=== PATIENT | male | born 1945 | race Caucasian/White ===

== ENCOUNTER 2020-03-04 17:30 | Observation (INO) ==
[2020-03-04] MEDS ORDERED: CIPRO IV 400 MG PREMIX* 400 MG/200 ML IV.SOLN. IV SCH (20:05)
[2020-03-04 20:38] LABS: BASOPHILS # (AUTO) 0.1 X10^3/uL (0.0-0.1); EOSINOPHILS % (AUTO) 0.3 % (0.9-2.9); HEMATOCRIT 38.8 % (42.0-54.0); HEMOGLOBIN 12.6 g/dL (13.5-18.0); LYMPHOCYTES # (AUTO) 0.6 X10^3/uL (1.3-2.9); LYMPHOCYTES % (AUTO) 4.6 % (21.0-51.0); MEAN CORPUSCULAR HGB CONC 32.5 g/dL (33.0-35.0); MEAN CORPUSCULAR VOLUME 89.4 fL (80.0-100.0); MEAN PLATELET VOLUME 9.1 fL (7.4-11.0); MONOCYTES # (AUTO) 0.9 x10^3/uL (0.3-0.8); MONOCYTES % (AUTO) 6.8 % (0.0-13.0); NEUTROPHILS # (AUTO) 11.5 x10^3/uL (2.2-4.8); NEUTROPHILS % (AUTO) 87.3 % (42.0-75.0); PLATELET COUNT 77 X10^3/uL (150.0-450.0); RED BLOOD COUNT 4.34 X10^6/uL (4.7-6.0); RED CELL DISTRIBUTION WIDTH 14.4 % (11.6-16.5); WHITE BLOOD COUNT 13.2 X10^3/uL (3.6-10.0)
[2020-03-04 20:48] LABS: ALBUMIN 2.8 g/dL (3.4-5.0); CALCIUM 8.5 mg/dL (8.5-10.1); CARBON DIOXIDE 25.5 mmol/L (21-32); COR CA(FOR HYPOALB) 9.5 mg/dL (8.5-10.1); CREATININE 1.71 mg/dL (0.70-1.30); TOTAL PROTEIN 6.5 g/dL (6.4-8.2)
[2020-03-04 21:05] LABS: METAMYELOCYTES % 3; PLATELET MORPHOLOGY COMMENT NORMAL (NORMAL)
[2020-03-04 23:18] VITALS: BMI 26.2
[2020-03-05] MEDS: NS 1000 ML 1,000 ML IV SCH ×4 (00:26→22:28)
[2020-03-05] MEDS ORDERED: TYLENOL 325 MG TAB PO ONE (00:36)
[2020-03-05] MEDS: TYLENOL 325 MG TAB PO PRN ×2 (00:41→17:55)
[2020-03-05 03:52] LABS: BILIRUBIN,URINE NEGATIVE (NEGATIVE); BLOOD/HEMOGLOBIN,URINE 2+ (NEGATIVE); GLUCOSE, URINE NEGATIVE (NEGATIVE); KETONES,URINE 1+ (NEGATIVE); LEUKOCYTE ESTERASE ,URINE 1+ (NEGATIVE); NITRITES,URINE NEGATIVE (NEGATIVE); PROTEIN,URINE 3+ (NEGATIVE); UROBILINOGEN,URINE NORMAL (NORMAL)
[2020-03-05 04:01] LABS: APPEARANCE,URINE HAZY (CLEAR); BACTERIA,URINE 3+ /HPF (NEGATIVE); COLOR,URINE AMBER (YELLOW); HYALINE CASTS, URINE MANY /LPF (NEGATIVE); SQUAMOUS EPITHELIAL CELL,UR NEGATIVE /HPF (NEGATIVE)
[2020-03-05 04:02] LABS: GRANULAR CASTS,URINE MANY /LPF (NEGATIVE); MUCUS,URINE FEW /HPF (NEGATIVE); OTHER CASTS, URINE MANY /LPF (NEGATIVE)
[2020-03-05 06:44] LABS: BASOPHILS % (AUTO) 0.1 % (0.2-1.0); EOSINOPHILS # (AUTO) 0.1 x10^3/uL (0.0-0.2); EOSINOPHILS % (AUTO) 0.8 % (0.9-2.9); HEMATOCRIT 33.2 % (42.0-54.0); HEMOGLOBIN 11.5 g/dL (13.5-18.0); LYMPHOCYTES # (AUTO) 0.7 X10^3/uL (1.3-2.9); LYMPHOCYTES % (AUTO) 7.1 % (21.0-51.0); MEAN CORPUSCULAR HEMOGLOBIN 30.5 pg (27.0-34.0); MEAN CORPUSCULAR HGB CONC 34.7 g/dL (33.0-35.0); MEAN PLATELET VOLUME 9.6 fL (7.4-11.0); MONOCYTES # (AUTO) 0.8 x10^3/uL (0.3-0.8); MONOCYTES % (AUTO) 7.8 % (0.0-13.0); NEUTROPHILS # (AUTO) 8.8 x10^3/uL (2.2-4.8); NEUTROPHILS % (AUTO) 84.2 % (42.0-75.0); PLATELET COUNT 68 X10^3/uL (150.0-450.0); RED BLOOD COUNT 3.78 X10^6/uL (4.7-6.0); RED CELL DISTRIBUTION WIDTH 14.4 % (11.6-16.5); WHITE BLOOD COUNT 10.5 X10^3/uL (3.6-10.0)
[2020-03-05 07:06] LABS: ALBUMIN 2.4 g/dL (3.4-5.0); CALCIUM 8.5 mg/dL (8.5-10.1); CARBON DIOXIDE 26.1 mmol/L (21-32); COR CA(FOR HYPOALB) 9.8 mg/dL (8.5-10.1); CREATININE 1.6 mg/dL (0.70-1.30); TOTAL PROTEIN 5.9 g/dL (6.4-8.2)
[2020-03-05] MEDS ORDERED: CIPRO IV 400 MG PREMIX* 400 MG/200 ML IV.SOLN. IV SCH (09:00)
[2020-03-05] MEDS: FORTAZ or TAZICEF VIAL INJ 1 G in NS 100 ML IV + SPIKE MINIBAG* 100 ML IV SCH ×3 (09:00→22:29)
[2020-03-05] MEDS: CIPRO IV 400 MG PREMIX* 400 MG/200 ML IV.SOLN. IV SCH ×2 (09:16→22:29)
--- NOTE | 2020-03-05 09:47 | RAD ---
[id number] male with history of Covid. Shortness of breath.STUDYCHEST, 1 VIEWCOMPARISONPrevious chest radiograph from 03/03/2020.FINDINGSHeart size and pulmonary vasculature within normal limits. However since the previous exam, patchy opacity is developed at both lung bases. This may be related to either atelectasis or developing infiltrates. No significant effusion is seen on either side. Bony thorax is unremarkable.IMPRESSIONInterval development of bibasilar atelectasis/infiltrates.Electronically signed by: WOODY WESLEY (Mar 05, 2020 09:46:11)
[2020-03-05] MEDS: HumuLIN R SC PRN (17:57)
[2020-03-06] MEDS: NS 1000 ML 1,000 ML IV SCH (00:22)
[2020-03-06 05:16] LABS: ABG ALLEN TEST POSS; ABG BASE EXCESS 2.3 mmol/L (-2.0-2.0)
[2020-03-06] MEDS: FORTAZ or TAZICEF VIAL INJ 1 G in NS 100 ML IV + SPIKE MINIBAG* 100 ML IV SCH (05:25)
--- NOTE | 2020-03-06 05:44 | RAD ---
PROCEDURE: Chest X-ray 1 View .HISTORY: Short of breath.TECHNIQUE: AP view .COMPARISON: 03/05/2020.TECHNICAL QUALITY: Satisfactory .FINDINGS:Normal size heart .Mediastinum and hilar regions show no masses or lymphadenopathy .Normal central vascularity .Some mild atelectasis lung bases without convincing evidence of pneumonia. No pleural fluid or pneumothorax.No acute bony abnormality .IMPRESSION:No convincing evidence of developing pneumonia with some mild discoid atelectasis.Electronically signed by: Bruce Goodwin (Mar 06, 2020 05:42:48)
[2020-03-06 06:56] LABS: BASOPHILS % (AUTO) 0.1 % (0.2-1.0); EOSINOPHILS % (AUTO) 0.1 % (0.9-2.9); HEMATOCRIT 32.7 % (42.0-54.0); HEMOGLOBIN 11.2 g/dL (13.5-18.0); LYMPHOCYTES # (AUTO) 0.8 X10^3/uL (1.3-2.9); LYMPHOCYTES % (AUTO) 7.3 % (21.0-51.0); MEAN CORPUSCULAR HEMOGLOBIN 30.1 pg (27.0-34.0); MEAN CORPUSCULAR HGB CONC 34.2 g/dL (33.0-35.0); MEAN PLATELET VOLUME 9.7 fL (7.4-11.0); MONOCYTES # (AUTO) 1.1 x10^3/uL (0.3-0.8); MONOCYTES % (AUTO) 10.1 % (0.0-13.0); NEUTROPHILS # (AUTO) 8.9 x10^3/uL (2.2-4.8); NEUTROPHILS % (AUTO) 82.4 % (42.0-75.0); PLATELET COUNT 75 X10^3/uL (150.0-450.0); RED BLOOD COUNT 3.72 X10^6/uL (4.7-6.0); RED CELL DISTRIBUTION WIDTH 14.5 % (11.6-16.5); WHITE BLOOD COUNT 10.8 X10^3/uL (3.6-10.0)
[2020-03-06 07:09] LABS: ALANINE AMINOTRANSFERASE 18 Units/L (12-78); ALBUMIN 2.1 g/dL (3.4-5.0); ALKALINE PHOSPHATASE 67 Units/L (46-116); ASPARTATE AMINO TRANSFERASE 24 Units/L (15-37); BLOOD UREA NITROGEN 19 mg/dL (7-18); CALCIUM 8.1 mg/dL (8.5-10.1); CARBON DIOXIDE 24.2 mmol/L (21-32); CHLORIDE 105 mmol/L (98-107); COR CA(FOR HYPOALB) 9.6 mg/dL (8.5-10.1); COR NA(FOR HYPERGLY) 142 mmol/L (136-145); CREATININE 1.19 mg/dL (0.70-1.30); SODIUM 141 mmol/L (136-145); TOTAL PROTEIN 5.8 g/dL (6.4-8.2); eGFR NON BLACK RACES > 60 (>60)
[2020-03-06] MEDS: CIPRO IV 400 MG PREMIX* 400 MG/200 ML IV.SOLN. IV SCH (11:00)
[2020-03-06 11:49] VITALS: BP 131/60
[2020-03-06] MEDS: HumuLIN R SC PRN (11:52)
--- NOTE | 2020-04-22 10:37 | DR.H&P ---
H&P - History & Physical for Day of: H&P Date: 03/04/20 - Chief Complaint Chief Complaint: AMS, FEVER, WEAKNESS, UTI, ABDOMINAL PAIN - History of Present Illness History of Present Illness: PRESENTED TO THE OFFICE WITH COMPLAINTS OF CONFUSION, FEVER, AND MID AND RIGHT LOWER ABDOMINAL PAIN. PATIENT WAS SEEN IN THE ER ONE DAY PRIOR AND WAS DIAGNOSED WITH A URINARY TRACT INFECTION. PATIENTS SPOUSE REPORTS THAT HE CONTINUES TO BE VERY CONFUSED AND WEAK. ON EXAMINATION, PATIENT WAS DISORIENTED AND CONFUSED TO TIME AND PLACE. HE REPORTED LOSS OF APPETITE, FATIGUE, AND MALAISE. HE TESTED POSITIVE FOR COVID-19 OVER A MONTH AGO, BUT HE DENIES COUGH OR SHORTNESS OF BREATH. HE WAS RESWABBED AT THE OFFICE FOR COVID-19 AND IT WAS NEGATIVE. EXAMINATION REVEALED TENDERNESS OT THE RIGHT LOWER QUADRANT TO PALPATION. HIS PMH INCLUDES: DVT, HTN, GI BLEED, CHRONIC UTIs, HYPERLIPIDEMIA, DIABETES MELLITUS, AND LEFT GREAT TOE REMOVED. HE WAS ADMITTED TO THE HOSPITAL FOR FURTHER EVALUATION AND TREATMENT OF UTI, FEVER, ABDOMINAL PAIN, AND AMS. ON ARRIVAL TO THE HOSPITAL, VITALS WERE 99.2-20-97%-99-103/53. LABS WERE OBTAINED. ABNORMAL LAB VALUES INCLUDE THE FOLLOWING: WBC 13.2, RBC 4.34, HGB 12.6, HCT 38.8, PLT COUNT 77, D-DIMER 3.70, POTASSIUM 3.4, BUN 29, CREATININE 1.71, GLUCOSE 186, AST 14, ALBUMIN 2.8. RAPID SWAB WAS POSITIVE FOR COVID-19. WE FEEL THAT THIS IS NOT AN ACTIVE INFECTION, PROBABLY JUST PICKING UP ON HIS ANTIBODIES. BLOOD AND URINE CULTURES WERE SET UP. HE WAS STARTED ON NORMAL SALINE AT 75 ML/HR, CIPRO 400MG IV Q12H, TYLENOL 650MG PO Q6H PRN, HUMULIN R SLIDING SCALE, AND OTBS ACHS. WE WILL REVIEW HIS HOME MEDICATIONS WHEN THEY ARE AVAILABLE TO US. OTHERWISE, WE PLAN TO FOLLOW UP WITH AM LABS AND CONTINUE TO MONITOR. TIME SPENT ON CLINCIAL ASSESSMENT, REVIEWING LABS AND IMAGING, DECISION MAKING, AND DOCUMENTATION GREATER THAN 75 MINUTES. - Past Medical History Past Medical History: Diabetes, Dyslipidemia, Hypertension Additional Medical History: DVT, GI BLEE, CHRONIC UTI - Past Surgical History Surgical History: Ortho Surgery Additional Surgical History: L GREAT TOE AMPUTATION - Family History Family Medical History: Cancer - Social History Does patient currently use any type of tobacco product: No Have you used tobacco products in the last 12 months: No Type of Tobacco Use: None Alcohol Use: None Drug Use: None - Medications Home Medications: No Known Drug Allergies Allergy (Verified 03/03/20 19:01) New Prescriptions ciprofloxacin HCl 750 mg PO BID #28 tab 03/06/20 [Rx] - Review of Systems Constitutional: Fever, Chills, Weakness, Malaise Eyes: No Symptoms Reported ENT: No Symptoms Reported Respiratory: No Symptoms Reported Cardiovascular: No Symptoms Reported Gastrointestinal: See HPI, Nausea, Abdominal Pain Genitourinary: No Symptoms Reported Musculoskeletal: No Symptoms Reported Skin: No Symptoms Reported Neurological: Weakness, Confusion - Physical Exam Vital Signs: Temperature 99.3 F Pulse Rate [Left Brachial] 102 Respiratory Rate 17 Blood Pressure [Left Arm] 131/60 Blood Pressure 136/62 O2 Sat by Pulse Oximetry 94 Oriented: Not Oriented Eyes: Normal Ear: Normal Nose: Normal Throat: Normal Respiratory: Diminished Throughout Cardiovascular: Normal : Normal Auscultation: Bowel Sounds: Normal Palpation: Normal Tenderness: RLQ, Epigastric, Moderate. negative: Rebound, Guarding, Rigidity Skin: Normal Musculoskeletal: Normal Psychiatric: Normal Mood Description: Calm Affect: Normal Speech Pattern: Inappropriate - Assessment/Plan (1) Urinary tract infection Qualifiers: Urinary tract infection type: site unspecified Hematuria presence: without hematuria Qualified Code(s): N39.0 - Urinary tract infection, site not spec ified Status: Acute Plan: ADMIT, NORMAL SALINE AT 75 ML/HR, CIPRO 400MG IV Q12H, TYLENOL 650MG PO Q6H PRN, HUMULIN R SLIDING SCALE, AND OTBS ACHS. (2) Abdominal pain Qualifiers: Abdominal location: right lower quadrant Qualified Code(s): R10.31 - Right lower quadrant pain Status: Acute (3) Fever Qualifiers: Fever type: unspecified Qualified Code(s): R50.9 - Fever, unspecified Status: Acute (4) Weakness Status: Acute (5) Altered mental status Qualifiers: Altered mental status type: transient alteration of awareness Qualified Code(s): R40.4 - Transient alteration of awareness Status: Acute - Allergies Allergies/Adverse Reactions: Allergies Allergy/AdvReac Type Severity Reaction Status Date / Time No Known Drug Allergies Allergy Verified 03/03/20 19:01
--- NOTE | 2020-04-22 11:01 | PCM.PROG ---
Progress Note - Progress Note for Day of Date of Exam: 03/05/20 - Subjective Subjective: IS BEING TREATED FOR A UTI, FEVER, ABDOMINAL PAIN, AND AMS. TODAY, HE IS ALERT AND ORIENTED, LYING IN BED ON MORNING ROUNDS. HE CONTINUES WITH LOWER ABDOMINAL PAIN THIS MONRING, BUT REPORTS SLIGHT IMPROVEMENT SINCE ADMISSION. STAFF REPORTS THAT HE HAS BEEN DISORIENTED AT TIMES THROUGHOUT THE NIGHT, BUT APPEARS TO BE BETTER SO FAR THIS MORNING. ON EXAMINATION, HEART IS REGULAR IN RATE AND RHYTHM. BILATERAL LUNGS ARE NOTED WITH DIMIISHED LUNG SOUNDS THROUGHOUT. ABDOMEN IS ROUND, SOFT, AND NOTED WITH RLQ TENDERNESS TO PALPATION. NORMAL BOWEL SOUNDS ARE NOTED IN ALL QUADRANTS. HIS VITALS THIS MORNING ARE: 97.9-99-20-95%-128/60. LABS WERE OBTAINED. ABNORMAL LAB VALUES INCLUDE THE FOLLOWING: WBC 10.5, RBC 3.78, HGB 11.5, HCT 33.2, PLT COUNT 68, D-DIMER 3.70, BUN 31, CREATININE 1.60, GLUCOSE 123, TOTAL PROTEIN 5.9, ALBUMIN 2.4. URINALYSIS REVEALED: WBC 3-5, RBC 3-5, LEUKOCYTES 1+, BACTERIA 3+, PROTEIN 3+. BLOOD AND URINE CULTURES ARE PENDING. A CHEST XRAY WAS OBTAINED AND REVEALED: Interval development of bibasilar atelectasis/infiltrates. HE IS CURRENTLY RECEIVING NORMAL SALINE AT 75 ML/HR, CIPRO 400MG IV Q12H, TYLENOL 650MG PO Q6H PRN, HUMULIN R SLIDING SCALE, AND OTBS ACHS. WE WILL REVIEW HIS HOME MEDICATIONS TODAY. OTHERWISE, WE WILL FOLLOW UP WITH AM LABS AND CONTINUE TO MONITOR. TIME SPENT ON CLINCIAL ASSESSMENT, REVIEWING LABS AND IMAGING, DECISION MAKING, AND DOCUMENTATION GREATER THAN 75 MINUTES. - Past Medical Family Social History Past Med/Fam/Surg Hx: No changes since H&P Allergies: Allergies No Known Drug Allergies Allergy (Verified 03/03/20 19:01) - Review of Systems ROS: No change since H&P - Vital Signs and I&O's Vital Signs: Temperature 99.3 F Pulse Rate [Left Brachial] 102 Respiratory Rate 17 Blood Pressure [Left Arm] 131/60 Blood Pressure 136/62 O2 Sat by Pulse Oximetry 94 - Physical Exam Oriented: Not Oriented Eyes: Normal Ear: Normal Nose: Normal Throat: Normal Respiratory: Normal, Generalized, Diminished Cardiovascular: Normal : Normal Auscultation: Bowel Sounds: Normal Palpation: Normal Tenderness: RLQ, Epigastric, Moderate. negative: Rebound, Guarding, Rigidity Skin: Normal Musculoskeletal: Normal Psychiatric: Normal Mood Description: Calm Affect: Normal Speech Pattern: Inappropriate - Laboratory and Diagnostics Result Diagrams: 03/06/20 05:55 03/06/20 05:55 Labs: 03/04/20 20:26 Blood Blood Culture - Final 03/04/20 20:18 Blood Blood Culture - Final 03/05/20 03:30 Urine,Clean Catch Urine Culture - Final Laboratory WBC 10.8 X10^3/uL (3.6-10.0) H 03/06/20 05:55 RBC 3.72 X10^6/uL (4.7-6.0) L 03/06/20 05:55 Hgb 11.2 g/dL (13.5-18.0) L 03/06/20 05:55 Hct 32.7 % (42.0-54.0) L 03/06/20 05:55 MCV 88.0 fL (80.0-100.0) 03/06/20 05:55 MCH 30.1 pg (27.0-34.0) 03/06/20 05:55 MCHC 34.2 g/dL (33.0-35.0) 03/06/20 05:55 RDW 14.5 % (11.6-16.5) 03/06/20 05:55 Plt Count 75 X10^3/uL (150.0-450.0) L 03/06/20 05:55 Plt Count Comment Decreased (ADEQUATE) 03/04/20 20:18 MPV 9.7 fL (7.4-11.0) 03/06/20 05:55 Neut % (Auto) 82.4 % (42.0-75.0) H 03/06/20 05:55 Lymph % (Auto) 7.3 % (21.0-51.0) L 03/06/20 05:55 [place] % (Auto) 10.1 % (0.0-13.0) 03/06/20 05:55 Eos % (Auto) 0.1 % (0.9-2.9) L 03/06/20 05:55 Baso % (Auto) 0.1 % (0.2-1.0) L 03/06/20 05:55 Neut # (Auto) 8.9 x10^3/uL (2.2-4.8) H 03/06/20 05:55 Lymph # (Auto) 0.8 X10^3/uL (1.3-2.9) L 03/06/20 05:55 [place] # (Auto) 1.1 x10^3/uL (0.3-0.8) H 03/06/20 05:55 Eos # (Auto) 0.0 x10^3/uL (0.0-0.2) 03/06/20 05:55 Baso # (Auto) 0.0 X10^3/uL (0.0-0.1) 03/06/20 05:55 Absolute Nucleated RBC 0.0 /100WBC 03/06/20 05:55 Total Counted 100 03/04/20 20:18 Neutrophils % (Manual) 88 % (39-76) H 03/04/20 20:18 Lymphocytes % (Manual) 4 % (13-43) L 03/04/20 20:18 Monocytes % (Manual) 5 % (4-9) 03/04/20 20:18 Metamyelocytes % 3 03/04/20 20:18 Plt Morphology Comment Normal (NORMAL) 03/04/20 20:18 RBC Morphology Normal (NORMAL) 03/04/20 20:18 D-Dimer 3.81 ug/ml (0.0-0.57) H* 03/06/20 05:55 Sample Site L rad 03/06/20 05:10 ABG pH 7.500 (7.35-7.45) H 03/06/20 05:10 ABG pCO2 32.0 mmHg (35.0-45.0) L 03/06/20 05:10 ABG pO2 71.0 mmHg (80.0-100.0) L 03/06/20 05:10 ABG HCO3 25.0 mmol/L (22-26) 03/06/20 05:10 ABG O2 Saturation 95.0 % (90-100) 03/06/20 05:10 ABG Base Excess 2.3 mmol/L (-2.0-2.0) H 03/06/20 05:10 Iron Test Poss 03/06/20 05:10 A-a Gradient 39.0 mmHg 03/06/20 05:10 FiO2 21.0 03/06/20 05:10 Blood Gas Comments Beth well kb 03/06/20 05:10 Sodium 141 mmol/L (136-145) 03/06/20 05:55 Corrected Sodium 142 mmol/L (136-145) 03/06/20 05:55 Potassium 3.2 mmol/L (3.5-5.1) L 03/06/20 05:55 Chloride 105 mmol/L (98-107) 03/06/20 05:55 Carbon Dioxide 24.2 mmol/L (21-32) 03/06/20 05:55 BUN 19 mg/dL (7-18) H 03/06/20 05:55 Creatinine 1.19 mg/dL (0.70-1.30) 03/06/20 05:55 Est GFR (MDRD) Af Amer > 60 (>60) 03/06/20 05:55 Est GFR (MDRD) Non-Af > 60 (>60) 03/06/20 05:55 Glucose 125 mg/dL (65-99) H 03/06/20 05:55 POC Glucose (mg/dL) 213 mg/dL (65-99) H 03/06/20 11:50 Calcium 8.1 mg/dL (8.5-10.1) L 03/06/20 05:55 Corrected Calcium 9.6 mg/dL (8.5-10.1) 03/06/20 05:55 Magnesium 1.9 mg/dL (1.7-2.9) 03/05/20 05:52 Ferritin 160 ng/mL (26-388) 03/05/20 05:52 Total Bilirubin 0.50 mg/dL (0.2-1.0) 03/06/20 05:55 AST 24 Units/L (15-37) 03/06/20 05:55 ALT 18 Units/L (12-78) 03/06/20 05:55 Alkaline Phosphatase 67 Units/L (46-116) 03/06/20 05:55 C-Reactive Protein 339.70 mg/L (0-3.0) H 03/06/20 05:55 Total Protein 5.8 g/dL (6.4-8.2) L 03/06/20 05:55 Albumin 2.1 g/dL (3.4-5.0) L 03/06/20 05:55 Globulin 3.7 g/dL (2.5-4.5) 03/06/20 05:55 Albumin/Globulin Ratio 0.6 Ratio (1.1-2.1) L 03/06/20 05:55 Specimen Type Clean catch urine 03/05/20 03:30 Urine Color [place] (YELLOW) 03/05/20 03:30 Urine Appearance Hazy (CLEAR) 03/05/20 03:30 Urine pH 5.0 (5.0 - 8.0) 03/05/20 03:30 Ur Specific [place] 1.020 (1.000-1.030) 03/05/20 03:30 Urine Protein 3+ (NEGATIVE) 03/05/20 03:30 Urine Glucose (UA) Negative (NEGATIVE) 03/05/20 03:30 Urine Ketones 1+ (NEGATIVE) 03/05/20 03:30 Urine Occult Blood 2+ (NEGATIVE) 03/05/20 03:30 Urine Nitrite Negative (NEGATIVE) 03/05/20 03:30 Urine Bilirubin Negative (NEGATIVE) 03/05/20 03:30 Urine Urobilinogen Normal (NORMAL) 03/05/20 03:30 Ur Leukocyte Esterase 1+ (NEGATIVE) 03/05/20 03:30 Urine RBC 3-5 /HPF (0-3) A 03/05/20 03:30 Urine WBC 3-5 /HPF (0-5) 03/05/20 03:30 Ur Squamous Epith Cells Negative /HPF (NEGATIVE) 03/05/20 03:30 Urine Bacteria 3+ /HPF (NEGATIVE) 03/05/20 03:30 Hyaline Casts Many /LPF (NEGATIVE) 03/05/20 03:30 Granular Casts Many /LPF (NEGATIVE) 03/05/20 03:30 Other Casts Many /LPF (NEGATIVE) 03/05/20 03:30 Urine Mucus Few /HPF (NEGATIVE) 03/05/20 03:30 Ur Culture Indicated? Yes/culture set up 03/05/20 03:30 SARS CoV-2 RNA Rapid SHAYLA Positive (NEGATIVE) A 03/05/20 03:20 SARS-CoV-2 IgG Ab Positive (Negative) H 03/05/20 05:52 SARS-CoV-2 IgG (ALVINO) 1 5.2 IV (<=0.7) H 03/05/20 05:52 Miscellaneous Test Covid 19 03/05/20 18:00 - Plan (1) Urinary tract infection Status: Acute Qualifiers: Urinary tract infection type: site unspecified Hematuria presence: without hematuria Qualified Code(s): N39.0 - Urinary tract infection, site not specified Plan: NORMAL SALINE AT 75 ML/HR, CIPRO 400MG IV Q12H, TYLENOL 650MG PO Q6H PRN, HUMULIN R SLIDING SCALE, AND OTBS ACHS. (2) Abdominal pain Status: Acute Qualifiers: Abdominal location: right lower quadrant Qualified Code(s): R10.31 - Right lower quadrant pain (3) Fever Status: Acute Qualifiers: Fever type: unspecified Qualified Code(s): R50.9 - Fever, unspecified (4) Weakness Status: Acute (5) Altered mental status Status: Acute Qualifiers: Altered mental status type: transient alteration of awareness Qualified Code(s): R40.4 - Transient alteration of awareness
== END 2020-03-06 12:30 | disposition home or self-care (01) ==
LOC: MED/SURG
PROVIDERS: ADMIT Internal Medicine; ATTEND Internal Medicine
DX: Z79.01 Long term (current) use of anticoagulants; R79.89 Other specified abnormal findings of blood chemistry; I82.509 Chronic embolism and thrombosis of unspecified deep veins of unspecified lower extremity; R06.02 Shortness of breath; N39.0 Urinary tract infection, site not specified; K21.9 Gastro-esophageal reflux disease without esophagitis; I10 Essential (primary) hypertension; Z86.16 Personal history of COVID-19; R50.9 Fever, unspecified; R79.82 Elevated C-reactive protein (CRP); E11.65 Type 2 diabetes mellitus with hyperglycemia

== ENCOUNTER 2020-03-19 15:20 | Inpatient (IN) ==
--- NOTE | 2020-03-19 15:33 | DR.ABDMALE ---
HPI Time seen Time Seen by Provider: 03/19/20 15:20 Complaint Chief Complaint Doctors Comments: CC RUQ pain HPI: PT with 3 weeks of RUQ pain up to 8/10 intensity sharp character has had multiple visits for w/u today diagnosed of acute Cholecystitis and pericholecystic abscess pain increases with po intake decreases with gastric rest does not radiate no fever PMH PMH Past Medical History: Diabetes Past Surgical History: Yes Family History Family Medical History: Diabetes Mellitus, Cancer and Hypertension Social History Do you use any recreational Drugs:: No ROS Review of Systems Constitutional: No Symptoms Reported Eyes: No Symptoms Reported ENTM: No Symptoms Reported Respiratoy: No Symptoms Reported Cardiovascular: No Symptoms Reported Gastrointestinal/Abdominal: See HPI Neurological: No Symptoms Reported Musculoskeletal: No Symptoms Reported Integumentary: No Symptoms Reported Hematologic/Lymphatic: No Symptoms Reported Endocrine: No Symptoms Reported Psychiatric: No Symptoms Reported All Other Systems: Reviewed and Negative PE Vital Signs Vital Signs: Temp Pulse Resp BP BP Pulse Ox 03/19/20 15:22 98.2 F 89 16 166/77 99 03/06/20 08:00 131/60 General Limitations: No Limitations General Appearance: Alert and In No Apparent Distress Head Head Exam: Normal Inspection, Atraumatic and Normocephalic Eyes Eye exam: Normal Appearance, PERRL and EOMI ENT ENT Exam: Normal Exam, Normal Oropharynx and Normal External Ear Exam Neck Neck Exam: Normal Inspection, Full ROM and Trachea Midline Chest Chest Inspection: Normal Inspection and Symmetric Chest Wall Rise; negative Tenderness Respiratory Respiratory Exam: Normal Lung Sounds Bilat; negative Accessory Muscle Use and Chest Wall Tenderness Respiratory Exam: Bilateral: Clear to Auscultation Cardiovascular Cardiovascular Exam: Regular Rate, Normal Rhythm and Normal Heart Sounds Abdominal Exam Abdominal Exam: Normal Inspection, Normal Bowel Sounds and Soft; negative Distention, Tenderness and Guarding Rectal Rectal Exam: Deferred Back Back Exam: Normal Inspection and Full ROM; negative Tenderness Extremeties Extremities Exam: Normal Inspection and Full ROM; negative Tenderness, Normal Capillary Refill and Edema Exam: Male: Deferred Neurologic Neurological Exam: Alert and Oriented X3 Psychiatric Psychiatric Exam: Normal Affect and Normal Mood Skin Skin Exam: Warm, Dry, Intact and Normal Color MDM Differential Diagnosis Differential Diagnosis: Bowel Obstruction, Cholangitis, Cholcystitis and Cholelethiasis ROR Labs Reviewed Laboratory Results Reviewed?: Yes Result Diagrams: 03/19/20 15:49 03/19/20 15:49 Laboratory: WBC 7.9 X10^3/uL (3.6-10.0) 03/19/20 15:49 RBC 4.04 X10^6/uL (4.7-6.0) L 03/19/20 15:49 Hgb 11.8 g/dL (13.5-18.0) L 03/19/20 15:49 Hct 35.4 % (42.0-54.0) L 03/19/20 15:49 MCV 87.8 fL (80.0-100.0) 03/19/20 15:49 MCH 29.2 pg (27.0-34.0) 03/19/20 15:49 MCHC 33.2 g/dL (33.0-35.0) 03/19/20 15:49 RDW 14.7 % (11.6-16.5) 03/19/20 15:49 Plt Count 256 X10^3/uL (150.0-450.0) 03/19/20 15:49 MPV 8.7 fL (7.4-11.0) 03/19/20 15:49 Neut % (Auto) 62.0 % (42.0-75.0) 03/19/20 15:49 Lymph % (Auto) 26.9 % (21.0-51.0) 03/19/20 15:49 [place] % (Auto) 9.4 % (0.0-13.0) 03/19/20 15:49 Eos % (Auto) 1.0 % (0.9-2.9) 03/19/20 15:49 Baso % (Auto) 0.7 % (0.2-1.0) 03/19/20 15:49 Neut # (Auto) 4.9 x10^3/uL (2.2-4.8) H 03/19/20 15:49 Lymph # (Auto) 2.1 X10^3/uL (1.3-2.9) 03/19/20 15:49 [place] # (Auto) 0.7 x10^3/uL (0.3-0.8) 03/19/20 15:49 Eos # (Auto) 0.1 x10^3/uL (0.0-0.2) 03/19/20 15:49 Baso # (Auto) 0.1 X10^3/uL (0.0-0.1) 03/19/20 15:49 Absolute Nucleated RBC 0.1 /100WBC 03/19/20 15:49 Sodium 142 mmol/L (136-145) 03/19/20 15:49 Corrected Sodium TNP 03/19/20 15:49 Potassium 3.4 mmol/L (3.5-5.1) L 03/19/20 15:49 Chloride 106 mmol/L (98-107) 03/19/20 15:49 Carbon Dioxide 27.7 mmol/L (21-32) 03/19/20 15:49 BUN 6 mg/dL (7-18) L 03/19/20 15:49 Creatinine 1.03 mg/dL (0.70-1.30) 03/19/20 15:49 Est GFR (MDRD) Af Amer > 60 (>60) 03/19/20 15:49 Est GFR (MDRD) Non-Af > 60 (>60) 03/19/20 15:49 Glucose 69 mg/dL (65-99) 03/19/20 15:49 Calcium 8.5 mg/dL (8.5-10.1) 03/19/20 15:49 Corrected Calcium 9.4 mg/dL (8.5-10.1) 03/19/20 15:49 Total Bilirubin 0.50 mg/dL (0.2-1.0) 03/19/20 15:49 AST 34 Units/L (15-37) 03/19/20 15:49 ALT 65 Units/L (12-78) 03/19/20 15:49 Alkaline Phosphatase 208 Units/L (46-116) H 03/19/20 15:49 Total Protein 6.7 g/dL (6.4-8.2) 03/19/20 15:49 Albumin 2.9 g/dL (3.4-5.0) L 03/19/20 15:49 Globulin 3.8 g/dL (2.5-4.5) 03/19/20 15:49 Albumin/Globulin Ratio 0.8 Ratio (1.1-2.1) L 03/19/20 15:49 Amylase 40 Units/L (25-115) 03/19/20 15:49 Lipase 112 Units/L (73-393) 03/19/20 15:49 Opioid Opioid Risk Tool Age (Johnny box if 16-45): No History of Preadolescent Sexual Abuse: No Total: 0 Total Score Risk Category: Low Risk Copyright: David PINZON predicting aberrant behaviors Diagnosis Discharge Problem: Acute cholecystitis, Pericholecystic abscess
[2020-03-19] MEDS ORDERED: ZOSYN VIAL 3.375 GRAMS 3.375 G in NS 100 ML IV + SPIKE MINIBAG* 100 ML IV ONE (15:34)
[2020-03-19] MEDS ORDERED: NS 1000 ML 1,000 ML IV ONE (15:34)
[2020-03-19 15:39] VITALS: BMI 27.3
[2020-03-19 15:59] LABS: BASOPHILS # (AUTO) 0.1 X10^3/uL (0.0-0.1); BASOPHILS % (AUTO) 0.7 % (0.2-1.0); EOSINOPHILS # (AUTO) 0.1 x10^3/uL (0.0-0.2); HEMATOCRIT 35.4 % (42.0-54.0); HEMOGLOBIN 11.8 g/dL (13.5-18.0); LYMPHOCYTES # (AUTO) 2.1 X10^3/uL (1.3-2.9); LYMPHOCYTES % (AUTO) 26.9 % (21.0-51.0); MEAN CORPUSCULAR HEMOGLOBIN 29.2 pg (27.0-34.0); MEAN CORPUSCULAR HGB CONC 33.2 g/dL (33.0-35.0); MEAN CORPUSCULAR VOLUME 87.8 fL (80.0-100.0); MEAN PLATELET VOLUME 8.7 fL (7.4-11.0); MONOCYTES # (AUTO) 0.7 x10^3/uL (0.3-0.8); MONOCYTES % (AUTO) 9.4 % (0.0-13.0); NEUTROPHILS # (AUTO) 4.9 x10^3/uL (2.2-4.8); PLATELET COUNT 256 X10^3/uL (150.0-450.0); RED BLOOD COUNT 4.04 X10^6/uL (4.7-6.0); RED CELL DISTRIBUTION WIDTH 14.7 % (11.6-16.5); WHITE BLOOD COUNT 7.9 X10^3/uL (3.6-10.0)
[2020-03-19 16:13] LABS: ALANINE AMINOTRANSFERASE 65 Units/L (12-78); ALBUMIN 2.9 g/dL (3.4-5.0); ALKALINE PHOSPHATASE 208 Units/L (46-116); AMYLASE 40 Units/L (25-115); ASPARTATE AMINO TRANSFERASE 34 Units/L (15-37); BLOOD UREA NITROGEN 6 mg/dL (7-18); CALCIUM 8.5 mg/dL (8.5-10.1); CARBON DIOXIDE 27.7 mmol/L (21-32); CHLORIDE 106 mmol/L (98-107); COR CA(FOR HYPOALB) 9.4 mg/dL (8.5-10.1); CREATININE 1.03 mg/dL (0.70-1.30); LIPASE 112 Units/L (73-393); SODIUM 142 mmol/L (136-145); TOTAL PROTEIN 6.7 g/dL (6.4-8.2); eGFR NON BLACK RACES > 60 (>60)
[2020-03-19] MEDS ORDERED: NS 100 ML IV 100 ML IV ONE (16:53)
[2020-03-19] MEDS ORDERED: ZOSYN VIAL 3.375 GRAMS IV ONE (16:53)
[2020-03-19] MEDS ORDERED: NS 1000 ML 1,000 ML ONE (16:53)
[2020-03-19 17:03] LABS: BILIRUBIN,URINE NEGATIVE (NEGATIVE); BLOOD/HEMOGLOBIN,URINE NEGATIVE (NEGATIVE); GLUCOSE, URINE NEGATIVE (NEGATIVE); KETONES,URINE NEGATIVE (NEGATIVE); LEUKOCYTE ESTERASE ,URINE NEGATIVE (NEGATIVE); NITRITES,URINE NEGATIVE (NEGATIVE); PROTEIN,URINE NEGATIVE (NEGATIVE); UROBILINOGEN,URINE NORMAL (NORMAL)
[2020-03-19 17:08] LABS: APPEARANCE,URINE CLEAR (CLEAR); COLOR,URINE PALE YELLOW (YELLOW)
[2020-03-20 06:18] LABS: BASOPHILS % (AUTO) 0.8 % (0.2-1.0); EOSINOPHILS # (AUTO) 0.1 x10^3/uL (0.0-0.2); EOSINOPHILS % (AUTO) 1.4 % (0.9-2.9); HEMATOCRIT 33.8 % (42.0-54.0); HEMOGLOBIN 11.3 g/dL (13.5-18.0); LYMPHOCYTES # (AUTO) 1.3 X10^3/uL (1.3-2.9); LYMPHOCYTES % (AUTO) 22.8 % (21.0-51.0); MEAN CORPUSCULAR HGB CONC 33.3 g/dL (33.0-35.0); MEAN CORPUSCULAR VOLUME 87.3 fL (80.0-100.0); MONOCYTES # (AUTO) 0.7 x10^3/uL (0.3-0.8); NEUTROPHILS # (AUTO) 3.7 x10^3/uL (2.2-4.8); PLATELET COUNT 227 X10^3/uL (150.0-450.0); RED BLOOD COUNT 3.88 X10^6/uL (4.7-6.0); RED CELL DISTRIBUTION WIDTH 14.2 % (11.6-16.5); WHITE BLOOD COUNT 5.9 X10^3/uL (3.6-10.0)
[2020-03-20 06:33] LABS: ALANINE AMINOTRANSFERASE 51 Units/L (12-78); ALBUMIN 2.6 g/dL (3.4-5.0); ALKALINE PHOSPHATASE 168 Units/L (46-116); ASPARTATE AMINO TRANSFERASE 33 Units/L (15-37); BLOOD UREA NITROGEN 6 mg/dL (7-18); CALCIUM 8.3 mg/dL (8.5-10.1); CARBON DIOXIDE 27.5 mmol/L (21-32); CHLORIDE 109 mmol/L (98-107); COR CA(FOR HYPOALB) 9.4 mg/dL (8.5-10.1); CREATININE 0.95 mg/dL (0.70-1.30); SODIUM 146 mmol/L (136-145); eGFR NON BLACK RACES > 60 (>60)
[2020-03-20] MEDS ORDERED: ZOFRAN INJ 4 MG VIAL IVP PRN ×2 (08:51→12:26)
[2020-03-20] MEDS ORDERED: DILAUDID INJ IVP PRN ×2 (08:51→12:26)
--- NOTE | 2020-03-20 08:58 | DR.H&P ---
H&P - History & Physical for Day of: H&P Date: 03/19/20 - Chief Complaint Chief Complaint: ABDOMINAL PAIN X 2 WEEKS - History of Present Illness History of Present Illness: PRESENTED TO THE OFFICE WITH COMPLAINTS OF ABDOMINAL PAIN. SYMPTOMS REPORTEDLY STARTED ABOUT TWO WEEKS AGO. PAIN IS DESCRIBED RIGHT UPPER AND LOWER ABDOMINAL PAIN. PAIN IS DESCRIBED DIFFUSE, SHARP, AND IS CURRENTLY RATED A 5/10. HE HAS HAD FEVER ON AND OFF. HE WAS HOSPITALIZED ON 03/04/20 DUE TO UROSEPSIS. HE WAS DISCHARGED HOME ON 03/06/20 WITH A PRESCRIPTION FOR CIPRO 750MG PO BID. HE DENIES SIGNIFICANT IMPROVEMENT IN SYMPTOMS DESPITE COMPLIANCE WITH MEDICATIONS. HIS PMH INCUDES: LEFT GREAT TOE AMPUTATION, HYPERLIPIDEMIA, DIABETES, AND HYPERTENSION. HE WAS SENT TO THE HOSPITAL FOR FURTHER EVALUATION AND TREAMTMENT. ON ARRIVAL, HIS VITALS WERE 98.2 -89-16-99%-166/77. LABS WERE OBTAINED. ABNORMAL LAB VALUES INCLUDE THE FOLLOWING: RBC 4.04, HGB 11.8, HCT 35.4, POTASSIUM 3.4, BUN 6, ALK PHOS 208, ALBUMIN 2.9. COVID-19 NEGATIVE. URINALYSIS UNREMARKABLE. AN ABDOMEN/PELVIS CT WITH CONTRAST. 1. Acute cholecystitis, probably perforated with pericholecystic abscess seen near the fundus tracking along the edge of the liver. Liver is hypodense around the gallbladder and extension into liver parenchyma of infection is possible. 2. There is also new right effusion, and empyema or extension of the infection versus reactive fluid is considered. 3. Spine DJD, vascular plaque, colonic diverticulosis and other findings are similar to the prior. WE THEN CONSULTED WITH . DUE TO PATIENT BEING ON ELIQUIS AND HAVING ORAL CONTRAST, THE DECISION WAS MADE TO WAIT UNTIL 03/20/20 TO TAKE PATIENT TO THE OR. PLANS FOR CHOLECYTECTOMY. WE ARE IN AGREEMENT WITH PLANS. HE WAS ADMITTED TO THE HOSPITAL FOR FURTHER EVALUATION AND TREATMENT. HE WAS STARTED ON NORMAL SALINE AT 75 ML/HR, ZOSYN 3.375G IV TID, ZOFRAN 4MG IV Q4H PRN PAIN, AND DILAUDID 1MG IV Q4H PRN PAIN. A CHEST XRAY, ECHO, AND EKG WERE OBTAINED FOR SURGICAL CLEARANCE. PATIENT IS MEDICALLY STABLE AND CLEAR FOR SURGERY. AFTER SURGERY, WE WILL CONTINUE TO MONITOR PATIENT AND FOLLOW UP WITH AM LABS. TIME SPENT ON CLINCIAL ASSESSMENT, REVIEWING LABS AND IMAGING, DECISION MAKING, AND DOCUMENTATION GREATER THAN 75 MINUTES. - Past Medical History Past Medical History: Diabetes, Dyslipidemia, Hypertension - Past Surgical History Surgical History: Ortho Surgery Additional Surgical History: L GREAT TOE AMPUTATION - Family History Family Medical History: Cancer - Social History Alcohol Use: None Drug Use: None - Medications Home Medications: No Known Drug Allergies Allergy (Verified 03/03/20 19:01) - Review of Systems Constitutional: Fever, Chills, Weakness Eyes: No Symptoms Reported ENT: No Symptoms Reported Respiratory: No Symptoms Reported Cardiovascular: No Symptoms Reported Gastrointestinal: See HPI, Abdominal Pain Genitourinary: No Symptoms Reported Musculoskeletal: No Symptoms Reported Skin: No Symptoms Reported Neurological: Weakness - Physical Exam Vital Signs: Temperature 99 F Pulse Rate [Bilateral Radial] 70 Pulse Rate 82 Respiratory Rate 20 Blood Pressure [Left Arm] 135/63 Blood Pressure 160/75 O2 Sat by Pulse Oximetry 97 Oriented: Normal Eyes: Normal Ear: Normal Nose: Normal Throat: Normal Respiratory: Diminished Throughout Cardiovascular: Normal : Normal Auscultation: Bowel Sounds: Normal Palpation: Normal Tenderness: RUQ, RLQ, Moderate. negative: Rebound, Guarding, Rigidity Skin: Normal Musculoskeletal: Normal Psychiatric: Normal Mood Description: Calm Affect: Normal Speech Pattern: Clear - Assessment/Plan (1) Acute cholecystitis Status: Acute Plan: ADMIT, SURGICAL CONSULT, NORMAL SALINE AT 75 ML/HR, ZOSYN 3.375G IV TID, ZOFRAN PRN, DILAUDID PRN (2) Fever Qualifiers: Fever type: unspecified Qualified Code(s): R50.9 - Fever, unspecified Status: Acute (3) Pericholecystic abscess Status: Acute - Allergies Allergies/Adverse Reactions: Allergies Allergy/AdvReac Type Severity Reaction Status Date / Time No Known Drug Allergies Allergy Verified 03/03/20 19:01
[2020-03-20] MEDS ORDERED: NS 1000 ML 1,000 ML IV SCH (09:00)
--- NOTE | 2020-03-20 09:05 | RAD ---
HISTORYPRE-OP: GB surgerySTUDYCHEST x-ray, 1 VIEWCOMPARISONX-ray 03/06/2020FINDINGSHeart is normal in size. Likely prominent cardiophrenic fat pad, similar to prior study. No pneumothorax, focal infiltrate, or pleural effusion is seen.IMPRESSIONNo acute cardiopulmonary abnormality is seen.Electronically signed by: Abran Ely (Mar 20, 2020 09:03:30)
[2020-03-20] MEDS ORDERED: ZOSYN VIAL 3.375 GRAMS IV ONE (09:20)
[2020-03-20] MEDS ORDERED: NS 100 ML IV + SPIKE MINIBAG* 100 ML IV ONE (09:20)
[2020-03-20] MEDS: ZOSYN VIAL 3.375 GRAMS 3.375 G in NS 100 ML IV + SPIKE MINIBAG* 100 ML IV SCH ×3 (09:22→21:42)
[2020-03-20] MEDS ORDERED: ZOSYN VIAL 3.375 GRAMS 3.375 G in NS 100 ML IV + SPIKE MINIBAG* 100 ML IV SCH (10:44)
[2020-03-20] MEDS ORDERED: FENTANYL INJ 250 mcg ONE (12:19)
[2020-03-20] MEDS ORDERED: NS 1000 ML 1,000 ML ONE (12:24)
[2020-03-20] MEDS ORDERED: PHENERGAN INJ 25 MG IM PRN (12:26)
[2020-03-20] MEDS ORDERED: BENADRYL INJ 50 MG VIAL IVP PRN (12:26)
[2020-03-20] MEDS ORDERED: REGLAN INJ 10 MG VIAL IVP PRN (12:26)
[2020-03-20] MEDS ORDERED: VERSED ONE (12:30)
[2020-03-20] MEDS ORDERED: QUELICIN (OR ANECTINE) ONE (12:30)
[2020-03-20] MEDS ORDERED: ROBINUL ONE (12:30)
[2020-03-20] MEDS ORDERED: NEOSTIGMINE INJ ONE (12:30)
[2020-03-20] MEDS ORDERED: SUPRANE ONE (12:30)
[2020-03-20] MEDS ORDERED: DIPRIVAN VIAL ONE (12:30)
[2020-03-20] MEDS ORDERED: NORCURON INJ 10 MG VIAL ONE (12:30)
[2020-03-20] MEDS ORDERED: BACTROBAN TOPICAL OINT ONE (13:04)
[2020-03-20] MEDS ORDERED: NS + KCL 20 MEQ/L 1,000 ML IV ONE (15:29)
[2020-03-20] MEDS ORDERED: NS IRRIGATION* 3,000 ML ONE (15:37)
[2020-03-20] MEDS ORDERED: NS 1/2 + KCL 20 MEQ/L 1,000 ML IV SCH (16:00)
[2020-03-20] MEDS: NS + KCL 20 MEQ/L 1,000 ML IV SCH (16:09)
[2020-03-20] MEDS: FLAGYL IV PREMIX 500 MG BAG 500 MG/100 ML BAG IV SCH ×2 (16:09→23:30)
[2020-03-20] MEDS: SNACK - Diabetic Appropriate PO SCH (21:42)
[2020-03-21] MEDS: NS + KCL 20 MEQ/L 1,000 ML IV SCH ×3 (05:54→18:29)
[2020-03-21] MEDS: ZOSYN VIAL 3.375 GRAMS 3.375 G in NS 100 ML IV + SPIKE MINIBAG* 100 ML IV SCH ×3 (05:54→21:45)
[2020-03-21 06:33] LABS: BASOPHILS % (AUTO) 0.5 % (0.2-1.0); EOSINOPHILS # (AUTO) 0.1 x10^3/uL (0.0-0.2); EOSINOPHILS % (AUTO) 0.8 % (0.9-2.9); HEMATOCRIT 34.2 % (42.0-54.0); HEMOGLOBIN 11.3 g/dL (13.5-18.0); LYMPHOCYTES # (AUTO) 1.3 X10^3/uL (1.3-2.9); LYMPHOCYTES % (AUTO) 14.3 % (21.0-51.0); MEAN CORPUSCULAR VOLUME 87.8 fL (80.0-100.0); MEAN PLATELET VOLUME 8.9 fL (7.4-11.0); MONOCYTES # (AUTO) 0.9 x10^3/uL (0.3-0.8); MONOCYTES % (AUTO) 10.3 % (0.0-13.0); NEUTROPHILS # (AUTO) 6.8 x10^3/uL (2.2-4.8); NEUTROPHILS % (AUTO) 74.1 % (42.0-75.0); PLATELET COUNT 236 X10^3/uL (150.0-450.0); RED CELL DISTRIBUTION WIDTH 14.6 % (11.6-16.5); WHITE BLOOD COUNT 9.1 X10^3/uL (3.6-10.0)
[2020-03-21 06:49] LABS: ALANINE AMINOTRANSFERASE 40 Units/L (12-78); ALBUMIN 2.6 g/dL (3.4-5.0); ALKALINE PHOSPHATASE 139 Units/L (46-116); ASPARTATE AMINO TRANSFERASE 24 Units/L (15-37); BLOOD UREA NITROGEN 8 mg/dL (7-18); CALCIUM 8.1 mg/dL (8.5-10.1); CARBON DIOXIDE 24.8 mmol/L (21-32); CHLORIDE 109 mmol/L (98-107); COR CA(FOR HYPOALB) 9.2 mg/dL (8.5-10.1); CREATININE 0.89 mg/dL (0.70-1.30); SODIUM 144 mmol/L (136-145); TOTAL PROTEIN 5.8 g/dL (6.4-8.2); eGFR NON BLACK RACES > 60 (>60)
[2020-03-21] MEDS: FLAGYL IV PREMIX 500 MG BAG 500 MG/100 ML BAG IV SCH ×3 (08:45→22:40)
[2020-03-21] MEDS: NEURONTIN CAP 300 MG PO SCH ×2 (10:56→21:50)
[2020-03-21] MEDS: COREG TAB 6.25 MG PO SCH ×2 (10:56→21:34)
[2020-03-21] MEDS: DIOVAN TAB 160 MG PO SCH (10:56)
[2020-03-21] MEDS: PROTONIX TAB 40 MG PO SCH (10:57)
--- NOTE | 2020-03-21 12:14 | PCM.PROG ---
Progress Note Progress Note for Day of Date of Exam: 03/21/20 Subjective Subjective: Patient seen at bedside, no overnight events. He is doing well. Patient had a diagnostic laparoscopy yesterday. He was suppose to have his gallbladder removed but during the procedure it was noted that he had a lot of adhesions and pericholecystic abscess so a EDDIE drain was placed. He denies N/V/D or abdominal pain. Labs: Hgb 11.3 WBC 9.1 Alk Phos 139 CRP 14 CEA pending Plan: follow Dr. Bravo's recommendations, he will advance diet today. Continue IV antibiotics Zosyn/Flagyl and hydration. Continue insulin. Resume home medications. Monitor output from EDDIE drain. Monitor AM labs. Past Medical Family Social History Past Med/Fam/Surg Hx: No changes since H&P Allergies: Allergies No Known Drug Allergies Allergy (Verified 03/03/20 19:01) Review of Systems ROS: No change since H&P Vital Signs and I&O's Vital Signs: Temperature 98.1 F Pulse Rate [Bilateral Radial] 87 Pulse Rate 87 Respiratory Rate 16 Blood Pressure [Left Arm] 152/72 Blood Pressure 149/72 O2 Sat by Pulse Oximetry 94 Intake and Output: Intake & Output 03/18/20 03/19/20 03/20/20 03/21/20 23:59 23:59 23:59 23:59 Intake Total 226 / 226 4016 / 4016 1180 / 1180 Output Total 980 / 980 2655 / 2655 250 / 250 Balance -754 / -754 1361 / 1361 930 / 930 Physical Exam Oriented: Normal Eyes: Normal Ear: Normal Nose: Normal Throat: Normal Respiratory: Normal Cardiovascular: Normal Auscultation: Bowel Sounds: Normal Tenderness: RUQ and Mild Skin: Normal Musculoskeletal: Normal Psychiatric: Normal Mood Description: Calm Affect: Normal Speech Pattern: Clear and Appropriate Laboratory and Diagnostics Result Diagrams: 03/21/20 05:48 03/21/20 05:48 Labs: Laboratory WBC 9.1 X10^3/uL (3.6-10.0) 03/21/20 05:48 RBC 3.90 X10^6/uL (4.7-6.0) L 03/21/20 05:48 Hgb 11.3 g/dL (13.5-18.0) L 03/21/20 05:48 Hct 34.2 % (42.0-54.0) L 03/21/20 05:48 MCV 87.8 fL (80.0-100.0) 03/21/20 05:48 MCH 29.0 pg (27.0-34.0) 03/21/20 05:48 MCHC 33.0 g/dL (33.0-35.0) 03/21/20 05:48 RDW 14.6 % (11.6-16.5) 03/21/20 05:48 Plt Count 236 X10^3/uL (150.0-450.0) 03/21/20 05:48 MPV 8.9 fL (7.4-11.0) 03/21/20 05:48 Neut % (Auto) 74.1 % (42.0-75.0) 03/21/20 05:48 Lymph % (Auto) 14.3 % (21.0-51.0) L 03/21/20 05:48 [place] % (Auto) 10.3 % (0.0-13.0) 03/21/20 05:48 Eos % (Auto) 0.8 % (0.9-2.9) L 03/21/20 05:48 Baso % (Auto) 0.5 % (0.2-1.0) 03/21/20 05:48 Neut # (Auto) 6.8 x10^3/uL (2.2-4.8) H 03/21/20 05:48 Lymph # (Auto) 1.3 X10^3/uL (1.3-2.9) 03/21/20 05:48 [place] # (Auto) 0.9 x10^3/uL (0.3-0.8) H 03/21/20 05:48 Eos # (Auto) 0.1 x10^3/uL (0.0-0.2) 03/21/20 05:48 Baso # (Auto) 0.0 X10^3/uL (0.0-0.1) 03/21/20 05:48 Absolute Nucleated RBC 0.1 /100WBC 03/21/20 05:48 Sodium 144 mmol/L (136-145) 03/21/20 05:48 Corrected Sodium TNP 03/21/20 05:48 Potassium 3.6 mmol/L (3.5-5.1) 03/21/20 05:48 Chloride 109 mmol/L (98-107) H 03/21/20 05:48 Carbon Dioxide 24.8 mmol/L (21-32) 03/21/20 05:48 BUN 8 mg/dL (7-18) 03/21/20 05:48 Creatinine 0.89 mg/dL (0.70-1.30) 03/21/20 05:48 Est GFR (MDRD) Af Amer > 60 (>60) 03/21/20 05:48 Est GFR (MDRD) Non-Af > 60 (>60) 03/21/20 05:48 Glucose 90 mg/dL (65-99) 03/21/20 05:48 POC Glucose (mg/dL) 174 mg/dL (65-99) H 03/21/20 11:17 Calcium 8.1 mg/dL (8.5-10.1) L 03/21/20 05:48 Corrected Calcium 9.2 mg/dL (8.5-10.1) 03/21/20 05:48 Total Bilirubin 0.50 mg/dL (0.2-1.0) 03/21/20 05:48 AST 24 Units/L (15-37) 03/21/20 05:48 ALT 40 Units/L (12-78) 03/21/20 05:48 Alkaline Phosphatase 139 Units/L (46-116) H 03/21/20 05:48 C-Reactive Protein 14.00 mg/L (0-3.0) H 03/21/20 05:48 Total Protein 5.8 g/dL (6.4-8.2) L 03/21/20 05:48 Albumin 2.6 g/dL (3.4-5.0) L 03/21/20 05:48 Globulin 3.2 g/dL (2.5-4.5) 03/21/20 05:48 Albumin/Globulin Ratio 0.8 Ratio (1.1-2.1) L 03/21/20 05:48 Amylase 40 Units/L (25-115) 03/19/20 15:49 Lipase 112 Units/L (73-393) 03/19/20 15:49 Specimen Type Random urine 03/19/20 16:55 Urine Color Pale yellow (YELLOW) 03/19/20 16:55 Urine Appearance Clear (CLEAR) 03/19/20 16:55 Urine pH 6.0 (5.0 - 8.0) 03/19/20 16:55 Ur Specific [place] 1.010 (1.000-1.030) 03/19/20 16:55 Urine Protein Negative (NEGATIVE) 03/19/20 16:55 Urine Glucose (UA) Negative (NEGATIVE) 03/19/20 16:55 Urine Ketones Negative (NEGATIVE) 03/19/20 16:55 Urine Occult Blood Negative (NEGATIVE) 03/19/20 16:55 Urine Nitrite Negative (NEGATIVE) 03/19/20 16:55 Urine Bilirubin Negative (NEGATIVE) 03/19/20 16:55 Urine Urobilinogen Normal (NORMAL) 03/19/20 16:55 Ur Leukocyte Esterase Negative (NEGATIVE) 03/19/20 16:55 SARS CoV-2 RNA Rapid SHAYLA Negative (NEGATIVE) 03/19/20 16:46 Plan (1) Acute cholecystitis: Status: Acute Plan: ADMIT, SURGICAL CONSULT, NORMAL SALINE AT 75 ML/HR, ZOSYN 3.375G IV TID, ZOFRAN PRN, DILAUDID PRN (2) Fever: Status: Acute Qualifiers: Fever type: unspecified Qualified Code(s): R50.9 - Fever, unspecified (3) Pericholecystic abscess: Status: Acute (4) Diabetes: Status: Acute Qualifiers: Diabetes mellitus type: type 2 Diabetes mellitus complication status: without complication (5) GERD (gastroesophageal reflux disease): Status: Acute Qualifiers: Esophagitis presence: without esophagitis Qualified Code(s): K21.9 - Gastro-esophageal reflux disease without esophagitis (6) HLD (hyperlipidemia): Status: Acute Qualifiers: Hyperlipidemia type: unspecified Qualified Code(s): E78.5 - Hyperlipidemia, unspecified (7) DVT (deep venous thrombosis): Status: Acute Qualifiers: Chronicity: chronic Laterality: unspecified laterality DVT location: lower extremity
--- NOTE | 2020-03-21 12:22 | DR.PROGNOT ---
Hospital Progress Notes - Progress Note for Day of: Progress Note Date: 03/21/20 - Chief Complaint Chief Complaint: doing very well after surgery . mild abdominal pain , no nausea or vomiting . tolerating diet well . mild drainage in EDDIE . WBC 9.1.. normal LFT - Past Medical Family Social History Past Med/Fam/Surg Hx: No changes since H&P Allergies: Allergies No Known Drug Allergies Allergy (Verified 03/03/20 19:01) - Review Of Systems ROS: No change since H&P - Vital Signs Vital Signs: Temperature 98.1 F Pulse Rate [Bilateral Radial] 87 Pulse Rate 87 Respiratory Rate 16 Blood Pressure [Left Arm] 152/72 Blood Pressure 149/72 O2 Sat by Pulse Oximetry 94 - Physical Exam Oriented: Normal Eyes: Normal Ear: Normal Nose: Normal Throat: Normal Cardiovascular: Normal : Normal GI:Auscultation: Normal GI:Palpation: Normal GI: Tenderness: RUQ, RLQ, Moderate. negative: Rebound, Guarding, Rigidity Skin: Normal Musculoskeletal: Normal Psychiatric: Normal Mood Description: Calm Affect: Normal Speech Pattern: Clear, Appropriate - Laboratory and Diagnostics Result Diagrams: 03/21/20 05:48 03/21/20 05:48 Labs: Laboratory WBC 9.1 X10^3/uL (3.6-10.0) 03/21/20 05:48 RBC 3.90 X10^6/uL (4.7-6.0) L 03/21/20 05:48 Hgb 11.3 g/dL (13.5-18.0) L 03/21/20 05:48 Hct 34.2 % (42.0-54.0) L 03/21/20 05:48 MCV 87.8 fL (80.0-100.0) 03/21/20 05:48 MCH 29.0 pg (27.0-34.0) 03/21/20 05:48 MCHC 33.0 g/dL (33.0-35.0) 03/21/20 05:48 RDW 14.6 % (11.6-16.5) 03/21/20 05:48 Plt Count 236 X10^3/uL (150.0-450.0) 03/21/20 05:48 MPV 8.9 fL (7.4-11.0) 03/21/20 05:48 Neut % (Auto) 74.1 % (42.0-75.0) 03/21/20 05:48 Lymph % (Auto) 14.3 % (21.0-51.0) L 03/21/20 05:48 [place] % (Auto) 10.3 % (0.0-13.0) 03/21/20 05:48 Eos % (Auto) 0.8 % (0.9-2.9) L 03/21/20 05:48 Baso % (Auto) 0.5 % (0.2-1.0) 03/21/20 05:48 Neut # (Auto) 6.8 x10^3/uL (2.2-4.8) H 03/21/20 05:48 Lymph # (Auto) 1.3 X10^3/uL (1.3-2.9) 03/21/20 05:48 [place] # (Auto) 0.9 x10^3/uL (0.3-0.8) H 03/21/20 05:48 Eos # (Auto) 0.1 x10^3/uL (0.0-0.2) 03/21/20 05:48 Baso # (Auto) 0.0 X10^3/uL (0.0-0.1) 03/21/20 05:48 Absolute Nucleated RBC 0.1 /100WBC 03/21/20 05:48 Sodium 144 mmol/L (136-145) 03/21/20 05:48 Corrected Sodium TNP 03/21/20 05:48 Potassium 3.6 mmol/L (3.5-5.1) 03/21/20 05:48 Chloride 109 mmol/L (98-107) H 03/21/20 05:48 Carbon Dioxide 24.8 mmol/L (21-32) 03/21/20 05:48 BUN 8 mg/dL (7-18) 03/21/20 05:48 Creatinine 0.89 mg/dL (0.70-1.30) 03/21/20 05:48 Est GFR (MDRD) Af Amer > 60 (>60) 03/21/20 05:48 Est GFR (MDRD) Non-Af > 60 (>60) 03/21/20 05:48 Glucose 90 mg/dL (65-99) 03/21/20 05:48 POC Glucose (mg/dL) 174 mg/dL (65-99) H 03/21/20 11:17 Calcium 8.1 mg/dL (8.5-10.1) L 03/21/20 05:48 Corrected Calcium 9.2 mg/dL (8.5-10.1) 03/21/20 05:48 Total Bilirubin 0.50 mg/dL (0.2-1.0) 03/21/20 05:48 AST 24 Units/L (15-37) 03/21/20 05:48 ALT 40 Units/L (12-78) 03/21/20 05:48 Alkaline Phosphatase 139 Units/L (46-116) H 03/21/20 05:48 C-Reactive Protein 14.00 mg/L (0-3.0) H 03/21/20 05:48 Total Protein 5.8 g/dL (6.4-8.2) L 03/21/20 05:48 Albumin 2.6 g/dL (3.4-5.0) L 03/21/20 05:48 Globulin 3.2 g/dL (2.5-4.5) 03/21/20 05:48 Albumin/Globulin Ratio 0.8 Ratio (1.1-2.1) L 03/21/20 05:48 Amylase 40 Units/L (25-115) 03/19/20 15:49 Lipase 112 Units/L (73-393) 03/19/20 15:49 Specimen Type Random urine 03/19/20 16:55 Urine Color Pale yellow (YELLOW) 03/19/20 16:55 Urine Appearance Clear (CLEAR) 03/19/20 16:55 Urine pH 6.0 (5.0 - 8.0) 03/19/20 16:55 Ur Specific [place] 1.010 (1.000-1.030) 03/19/20 16:55 Urine Protein Negative (NEGATIVE) 03/19/20 16:55 Urine Glucose (UA) Negative (NEGATIVE) 03/19/20 16:55 Urine Ketones Negative (NEGATIVE) 03/19/20 16:55 Urine Occult Blood Negative (NEGATIVE) 03/19/20 16:55 Urine Nitrite Negative (NEGATIVE) 03/19/20 16:55 Urine Bilirubin Negative (NEGATIVE) 03/19/20 16:55 Urine Urobilinogen Normal (NORMAL) 03/19/20 16:55 Ur Leukocyte Esterase Negative (NEGATIVE) 03/19/20 16:55 SARS CoV-2 RNA Rapid SHAYLA Negative (NEGATIVE) 03/19/20 16:46 - Assessment and Plan 1: acute calculus cholecystitis with possible perforation and abscess formation with dense scars and adhesions . s/p laparoscopy and drainage . same IV ATB . advance diet . - Problem Patient Problems: Patient Problems Fever (Acute) R50.9 Acute cholecystitis (Acute) K81.0 Pericholecystic abscess (Acute) K81.0
[2020-03-21] MEDS: HumuLIN R SUBCUT PRN (16:08)
[2020-03-21] MEDS: CRESTOR TAB 10 MG PO SCH (21:45)
[2020-03-22] MEDS: SNACK - Diabetic Appropriate PO SCH ×2 (00:50→21:26)
[2020-03-22] MEDS ORDERED: NS + KCL 20 MEQ/L 1,000 ML IV ONE (03:54)
[2020-03-22] MEDS: NS + KCL 20 MEQ/L 1,000 ML IV SCH (04:36)
[2020-03-22] MEDS: FLAGYL IV PREMIX 500 MG BAG 500 MG/100 ML BAG IV SCH ×4 (05:53→23:00)
[2020-03-22] MEDS: ZOSYN VIAL 3.375 GRAMS 3.375 G in NS 100 ML IV + SPIKE MINIBAG* 100 ML IV SCH ×3 (06:00→22:00)
[2020-03-22 06:50] LABS: BASOPHILS % (AUTO) 0.7 % (0.2-1.0); EOSINOPHILS # (AUTO) 0.1 x10^3/uL (0.0-0.2); EOSINOPHILS % (AUTO) 2.2 % (0.9-2.9); HEMATOCRIT 33.4 % (42.0-54.0); HEMOGLOBIN 11.1 g/dL (13.5-18.0); LYMPHOCYTES # (AUTO) 1.5 X10^3/uL (1.3-2.9); LYMPHOCYTES % (AUTO) 23.4 % (21.0-51.0); MEAN CORPUSCULAR HEMOGLOBIN 29.3 pg (27.0-34.0); MEAN CORPUSCULAR HGB CONC 33.1 g/dL (33.0-35.0); MEAN CORPUSCULAR VOLUME 88.4 fL (80.0-100.0); MEAN PLATELET VOLUME 8.8 fL (7.4-11.0); MONOCYTES # (AUTO) 0.8 x10^3/uL (0.3-0.8); MONOCYTES % (AUTO) 12.4 % (0.0-13.0); NEUTROPHILS # (AUTO) 3.9 x10^3/uL (2.2-4.8); NEUTROPHILS % (AUTO) 61.3 % (42.0-75.0); PLATELET COUNT 195 X10^3/uL (150.0-450.0); RED BLOOD COUNT 3.78 X10^6/uL (4.7-6.0); RED CELL DISTRIBUTION WIDTH 14.8 % (11.6-16.5); WHITE BLOOD COUNT 6.4 X10^3/uL (3.6-10.0)
[2020-03-22 07:01] LABS: ALANINE AMINOTRANSFERASE 28 Units/L (12-78); ALBUMIN 2.4 g/dL (3.4-5.0); ALKALINE PHOSPHATASE 113 Units/L (46-116); ASPARTATE AMINO TRANSFERASE 15 Units/L (15-37); BLOOD UREA NITROGEN 6 mg/dL (7-18); CALCIUM 8.4 mg/dL (8.5-10.1); CARBON DIOXIDE 28.1 mmol/L (21-32); CHLORIDE 111 mmol/L (98-107); COR CA(FOR HYPOALB) 9.7 mg/dL (8.5-10.1); COR NA(FOR HYPERGLY) 146 mmol/L (136-145); CREATININE 0.98 mg/dL (0.70-1.30); SODIUM 144 mmol/L (136-145); TOTAL PROTEIN 5.6 g/dL (6.4-8.2); eGFR NON BLACK RACES > 60 (>60)
[2020-03-22] MEDS: PROTONIX TAB 40 MG PO SCH (09:09)
[2020-03-22] MEDS: NEURONTIN CAP 300 MG PO SCH ×2 (09:09→21:25)
[2020-03-22] MEDS: DIOVAN TAB 160 MG PO SCH (09:09)
[2020-03-22] MEDS: COREG TAB 6.25 MG PO SCH ×2 (09:10→21:25)
--- NOTE | 2020-03-22 11:25 | PCM.PROG ---
Progress Note Progress Note for Day of Date of Exam: 03/22/20 Subjective Subjective: Patient seen at bedside, no overnight events. He states he feels well. He was able to tolerate his regular diet yesterday. Denies N/C/D or abdominal pain. Drainage has decreased ia his EDDIE drain. Labs: Hgb 11.1 WBC 6.4 CEA pending Blood Cx (-) Plan: follow Dr. Bravo's recommendations. Continue IV antibiotics Zosyn/Flagyl and hydration. Continue insulin. Continue home medications. Monitor output from EDDIE drain. Monitor AM labs. Past Medical Family Social History Past Med/Fam/Surg Hx: No changes since H&P Allergies: Allergies No Known Drug Allergies Allergy (Verified 03/03/20 19:01) Review of Systems ROS: No change since H&P Vital Signs and I&O's Vital Signs: Temperature 97.9 F Pulse Rate [Bilateral Radial] 98 Pulse Rate 87 Respiratory Rate 18 Blood Pressure [Left Arm] 157/82 Blood Pressure 149/72 O2 Sat by Pulse Oximetry 97 Intake and Output: Intake & Output 03/19/20 03/20/20 03/21/20 03/22/20 23:59 23:59 23:59 23:59 Intake Total 226 / 226 4016 / 4016 2550 / 2550 1291 / 1291 Output Total 980 / 980 2655 / 2655 1449 / 1449 450 / 450 Balance -754 / -754 1361 / 1361 1101 / 1101 841 / 841 Physical Exam Oriented: Normal Eyes: Normal Ear: Normal Nose: Normal Throat: Normal Respiratory: Normal Cardiovascular: Normal Auscultation: Bowel Sounds: Normal Tenderness: Normal and Other (EDDIE drain with some serosanguinous drainage noted ) Skin: Normal Musculoskeletal: Normal Psychiatric: Normal Mood Description: Calm Affect: Normal Speech Pattern: Clear and Appropriate Laboratory and Diagnostics Result Diagrams: 03/22/20 06:33 03/22/20 06:33 Labs: Laboratory WBC 6.4 X10^3/uL (3.6-10.0) 03/22/20 06:33 RBC 3.78 X10^6/uL (4.7-6.0) L 03/22/20 06:33 Hgb 11.1 g/dL (13.5-18.0) L 03/22/20 06:33 Hct 33.4 % (42.0-54.0) L 03/22/20 06:33 MCV 88.4 fL (80.0-100.0) 03/22/20 06:33 MCH 29.3 pg (27.0-34.0) 03/22/20 06:33 MCHC 33.1 g/dL (33.0-35.0) 03/22/20 06:33 RDW 14.8 % (11.6-16.5) 03/22/20 06:33 Plt Count 195 X10^3/uL (150.0-450.0) 03/22/20 06:33 MPV 8.8 fL (7.4-11.0) 03/22/20 06:33 Neut % (Auto) 61.3 % (42.0-75.0) 03/22/20 06:33 Lymph % (Auto) 23.4 % (21.0-51.0) 03/22/20 06:33 [place] % (Auto) 12.4 % (0.0-13.0) 03/22/20 06:33 Eos % (Auto) 2.2 % (0.9-2.9) 03/22/20 06:33 Baso % (Auto) 0.7 % (0.2-1.0) 03/22/20 06:33 Neut # (Auto) 3.9 x10^3/uL (2.2-4.8) 03/22/20 06:33 Lymph # (Auto) 1.5 X10^3/uL (1.3-2.9) 03/22/20 06:33 [place] # (Auto) 0.8 x10^3/uL (0.3-0.8) 03/22/20 06:33 Eos # (Auto) 0.1 x10^3/uL (0.0-0.2) 03/22/20 06:33 Baso # (Auto) 0.0 X10^3/uL (0.0-0.1) 03/22/20 06:33 Absolute Nucleated RBC 0.1 /100WBC 03/22/20 06:33 Sodium 144 mmol/L (136-145) 03/22/20 06:33 Corrected Sodium 146 mmol/L (136-145) H 03/22/20 06:33 Potassium 4.2 mmol/L (3.5-5.1) 03/22/20 06:33 Chloride 111 mmol/L (98-107) H 03/22/20 06:33 Carbon Dioxide 28.1 mmol/L (21-32) 03/22/20 06:33 BUN 6 mg/dL (7-18) L 03/22/20 06:33 Creatinine 0.98 mg/dL (0.70-1.30) 03/22/20 06:33 Est GFR (MDRD) Af Amer > 60 (>60) 03/22/20 06:33 Est GFR (MDRD) Non-Af > 60 (>60) 03/22/20 06:33 Glucose 170 mg/dL (65-99) H 03/22/20 06:33 POC Glucose (mg/dL) 142 mg/dL (65-99) H 03/22/20 05:37 Calcium 8.4 mg/dL (8.5-10.1) L 03/22/20 06:33 Corrected Calcium 9.7 mg/dL (8.5-10.1) 03/22/20 06:33 Total Bilirubin 0.40 mg/dL (0.2-1.0) 03/22/20 06:33 AST 15 Units/L (15-37) 03/22/20 06:33 ALT 28 Units/L (12-78) 03/22/20 06:33 Alkaline Phosphatase 113 Units/L (46-116) 03/22/20 06:33 C-Reactive Protein 22.90 mg/L (0-3.0) H 03/22/20 06:33 Total Protein 5.6 g/dL (6.4-8.2) L 03/22/20 06:33 Albumin 2.4 g/dL (3.4-5.0) L 03/22/20 06:33 Globulin 3.2 g/dL (2.5-4.5) 03/22/20 06:33 Albumin/Globulin Ratio 0.8 Ratio (1.1-2.1) L 03/22/20 06:33 Amylase 40 Units/L (25-115) 03/19/20 15:49 Lipase 112 Units/L (73-393) 03/19/20 15:49 Specimen Type Random urine 03/19/20 16:55 Urine Color Pale yellow (YELLOW) 03/19/20 16:55 Urine Appearance Clear (CLEAR) 03/19/20 16:55 Urine pH 6.0 (5.0 - 8.0) 03/19/20 16:55 Ur Specific [place] 1.010 (1.000-1.030) 03/19/20 16:55 Urine Protein Negative (NEGATIVE) 03/19/20 16:55 Urine Glucose (UA) Negative (NEGATIVE) 03/19/20 16:55 Urine Ketones Negative (NEGATIVE) 03/19/20 16:55 Urine Occult Blood Negative (NEGATIVE) 03/19/20 16:55 Urine Nitrite Negative (NEGATIVE) 03/19/20 16:55 Urine Bilirubin Negative (NEGATIVE) 03/19/20 16:55 Urine Urobilinogen Normal (NORMAL) 03/19/20 16:55 Ur Leukocyte Esterase Negative (NEGATIVE) 03/19/20 16:55 SARS CoV-2 RNA Rapid SHAYLA Negative (NEGATIVE) 03/19/20 16:46 Plan (1) Acute cholecystitis: Status: Acute (2) Fever: Status: Acute Qualifiers: Fever type: unspecified Qualified Code(s): R50.9 - Fever, unspecified (3) Pericholecystic abscess: Status: Acute (4) Diabetes: Status: Acute Qualifiers: Diabetes mellitus complication status: without complication Diabetes mellitus type: type 2 (5) GERD (gastroesophageal reflux disease): Status: Acute Qualifiers: Esophagitis presence: without esophagitis Qualified Code(s): K21.9 - Gastro-esophageal reflux disease without esophagitis (6) HLD (hyperlipidemia): Status: Acute Qualifiers: Hyperlipidemia type: unspecified Qualified Code(s): E78.5 - Hyperlipidemia, unspecified (7) DVT (deep venous thrombosis): Status: Acute Qualifiers: Chronicity: chronic DVT location: lower extremity Laterality: unspec ified laterality
[2020-03-22] MEDS ORDERED: HumuLIN R ONE (21:20)
[2020-03-22] MEDS: CRESTOR TAB 10 MG PO SCH (21:25)
[2020-03-22] MEDS: HumuLIN R SUBCUT PRN (21:27)
[2020-03-23] MEDS: ZOSYN VIAL 3.375 GRAMS 3.375 G in NS 100 ML IV + SPIKE MINIBAG* 100 ML IV SCH ×2 (05:10→13:36)
[2020-03-23 06:22] LABS: BASOPHILS % (AUTO) 0.6 % (0.2-1.0); EOSINOPHILS # (AUTO) 0.2 x10^3/uL (0.0-0.2); HEMATOCRIT 32.2 % (42.0-54.0); HEMOGLOBIN 10.9 g/dL (13.5-18.0); LYMPHOCYTES # (AUTO) 1.5 X10^3/uL (1.3-2.9); LYMPHOCYTES % (AUTO) 24.4 % (21.0-51.0); MEAN CORPUSCULAR HEMOGLOBIN 29.7 pg (27.0-34.0); MEAN CORPUSCULAR HGB CONC 33.7 g/dL (33.0-35.0); MEAN CORPUSCULAR VOLUME 87.9 fL (80.0-100.0); MEAN PLATELET VOLUME 9.1 fL (7.4-11.0); MONOCYTES # (AUTO) 0.7 x10^3/uL (0.3-0.8); MONOCYTES % (AUTO) 11.1 % (0.0-13.0); NEUTROPHILS # (AUTO) 3.8 x10^3/uL (2.2-4.8); NEUTROPHILS % (AUTO) 60.9 % (42.0-75.0); PLATELET COUNT 178 X10^3/uL (150.0-450.0); RED BLOOD COUNT 3.66 X10^6/uL (4.7-6.0); RED CELL DISTRIBUTION WIDTH 14.8 % (11.6-16.5); WHITE BLOOD COUNT 6.2 X10^3/uL (3.6-10.0)
[2020-03-23 06:32] LABS: ALANINE AMINOTRANSFERASE 22 Units/L (12-78); ALBUMIN 2.4 g/dL (3.4-5.0); ALKALINE PHOSPHATASE 96 Units/L (46-116); ASPARTATE AMINO TRANSFERASE 15 Units/L (15-37); BLOOD UREA NITROGEN 5 mg/dL (7-18); CARBON DIOXIDE 26.7 mmol/L (21-32); CHLORIDE 110 mmol/L (98-107); COR CA(FOR HYPOALB) 9.3 mg/dL (8.5-10.1); COR NA(FOR HYPERGLY) 146 mmol/L (136-145); CREATININE 0.84 mg/dL (0.70-1.30); SODIUM 145 mmol/L (136-145); TOTAL PROTEIN 5.5 g/dL (6.4-8.2); eGFR NON BLACK RACES > 60 (>60)
[2020-03-23] MEDS: FLAGYL IV PREMIX 500 MG BAG 500 MG/100 ML BAG IV SCH ×2 (06:53→14:09)
[2020-03-23] MEDS: COREG TAB 6.25 MG PO SCH (09:40)
[2020-03-23] MEDS: DIOVAN TAB 160 MG PO SCH (09:40)
[2020-03-23] MEDS: NEURONTIN CAP 300 MG PO SCH (09:41)
[2020-03-23] MEDS: PROTONIX TAB 40 MG PO SCH (09:41)
[2020-03-23] MEDS ORDERED: ELIQUIS PO SCH (10:30)
[2020-03-23] MEDS: NS + KCL 20 MEQ/L 1,000 ML IV SCH (11:26)
[2020-03-23] MEDS ORDERED: ELIQUIS ONE (11:41)
[2020-03-23] MEDS ORDERED: HumuLIN R ONE (11:42)
[2020-03-23] MEDS: HumuLIN R SUBCUT PRN ×2 (11:48→16:54)
[2020-03-23] MEDS ORDERED: LEVAQUIN PREMIX IV 750 MG 750 MG/150 ML BAG IV ONE (13:33)
[2020-03-23] MEDS ORDERED: INVANZ INJ 1 GM VIAL 1 GM in NS 100 ML IV + SPIKE MINIBAG* 100 ML IV ONE (13:33)
--- NOTE | 2020-03-23 13:48 | RAD ---
HISTORYPICC LINE PLACEMENTSTUDYCHEST, 1 VIEWCOMPARISONJanuary 2019FINDINGSThe trachea is midline. The cardiac silhouette is unremarkable. A left-sided PICC line is noted with tip overlying the distal SVC. The lungs are clear without focal infiltrate or effusion. The bony thorax is unremarkable.IMPRESSIONNo acute cardiopulmonary disease.Electronically signed by: KATHLEEN TURNER (Mar 23, 2020 13:47:27)
--- NOTE | 2020-03-23 14:41 | DR.UPDATE ---
H&P Update History and Physical Update: History and Physical reviewed and patient examined. Changes noted: NO Yes with the following:agree with H&P, will place picc H&P Reviewed: Yes Patient was examined?: Yes Procedures (ALL) - Central Line Placement PCM.CLCO: written consent Time out performed: Yes Patient placed pm monitor/pulse ox: Yes MD prep: mask, gown, gloves, other Centrial line prep: chlorhexidine scrub, sterile drapes applied Local anesthsia used: lidocane 1% Ultrasound used for placement: Yes (left basilic id'd) Central line lumen ininserted: double (5.5 arrow picc, 50cm, 5cm exposed) Post procedure: good blood return, all ports aspirated, flushed,capped, sterile dressing applied Post procedure xray: tip oc catheter in good position, no pneumothorax seen Patient tolerated procedure: Yes Complications: none
[2020-03-23 16:34] VITALS: BP 173/79
== END 2020-03-23 17:27 | disposition home health service (06) | DRG 409 ==
LOC: ER 15:20 → MED/SURG 16:34 → OBS 03-20 14:23
PROVIDERS: ADMIT Surgery; ATTEND Internal Medicine
PROC: DIAGLAP (2020-03-20 13:50)
DX: R79.82 Elevated C-reactive protein (CRP); K82.8 Other specified diseases of gallbladder; K82.A2 Perforation of gallbladder in cholecystitis; K80.12 Calculus of gallbladder with acute and chronic cholecystitis without obstruction; K21.9 Gastro-esophageal reflux disease without esophagitis; I87.2 Venous insufficiency (chronic) (peripheral); Z20.822 Contact with and (suspected) exposure to COVID-19; I82.409 Acute embolism and thrombosis of unspecified deep veins of unspecified lower extremity; E11.65 Type 2 diabetes mellitus with hyperglycemia; R50.9 Fever, unspecified; E78.5 Hyperlipidemia, unspecified; R10.11 Right upper quadrant pain; Z86.16 Personal history of COVID-19